=== PATIENT | female | born 1995 | race Caucasian/White ===

== ENCOUNTER 2017-10-22 20:05 | Emergency (ER) | payer BC ==
[~2017-10-22] VITALS: Ht 157.5 cm; Wt 56.7 kg
[2017-10-22 20:18] VITALS: BP_SYST 132
[2017-10-22 20:38] LABS: BILIRUBIN,URINE NEGATIVE (NEGATIVE); CLARITY/URINE CLEAR (CLEAR); COLOR,URINE YELLOW (YELLOW); GLUCOSE,URINE NEGATIVE (NEGATIVE); KETONES,URINE NEGATIVE (NEGATIVE); LEUKOCYTE ESTERASE ,URINE NEGATIVE (NEGATIVE); NITRITE, URINE NEGATIVE (NEGATIVE); PH,URINE 6.5 (5.0-8.0); PROTEIN URINE NEGATIVE (NEGATIVE); UROBILINOGEN,URINE 0.2 (0.2-1.0)
[2017-10-22 20:43] LABS: BLOOD, URINE TRACE (NEGATIVE)
[2017-10-22 21:00] LABS: BACTERIA,URINE FEW /HPF (None Seen); RBC,URINE 0-3 /HPF (0-3); WBC,URINE 0-3 /HPF (0-3)
[2017-10-22 21:01] LABS: BASOPHILS # (AUTO) 0.1 K/uL (0.0-0.2); BASOPHILS % (AUTO) 0.5 % (0.0-2.0); EOSINOPHILS # (AUTO) 0.5 K/uL (0.0-0.4); EOSINOPHILS % (AUTO) 4.6 % (0.0-4.0); HEMATOCRIT 40.7 % (36-48); HEMOGLOBIN 13.7 g/dL (12.0-16.0); LYMPHOCYTES # (AUTO) 3.5 K/uL (1.0-5.5); LYMPHOCYTES % (AUTO) 34.4 % (20.5-51.5); MEAN CORPUSCULAR HEMOGLOBIN 31 pg (27-31); MEAN CORPUSCULAR HGB CONC 34 % (32-36); MEAN CORPUSCULAR VOLUME 90 fL (79.0-98.0); MONOCYTES # (AUTO) 0.8 K/uL (0.0-1.0); MONOCYTES % (AUTO) 8.1 % (1.7-9.3); NEUTROPHILS # (AUTO) 5.3 K/uL (1.8-7.7); NEUTROPHILS % (AUTO) 52.4 % (40.0-70.0); PLATELET COUNT (AUTO) 438 K/uL (130-430); RED BLOOD CELL COUNT(AUTO) 4.51 MIL/uL (4.2-6.2); RED CELL DISTRIBUTION WIDTH 12.2 % (9.0-15.0); WHITE BLOOD COUNT (AUTO) 10.2 K/uL (4.8-10.8)
[2017-10-22 21:02] LABS: CALCIUM 9.7 mg/dL (8.4-11.0); CREATININE 0.83 mg/dL (0.55-1.30); POTASSIUM 3.6 mmol/L (3.5-5.1)
[2017-10-22 21:08] LABS: ALBUMIN 3.7 g/dL (3.4-4.8); TOTAL BILIRUBIN 0.7 mg/dL (0.0-1.0)
[2017-10-22] MEDS ORDERED: LORazepam 1 MG TABLET PO ONE (21:15)
[2017-10-22 22:52] VITALS: BP_SYST 111
== END 2017-10-22 22:52 | disposition home or self-care (01) ==
LOC: SED 20:05
DX: R42 Dizziness and giddiness (principal); Z86.2 Personal history of diseases of the blood and blood-forming organs and certain disorders involving the immune mechanism
CPT/HCPCS: 36415; 80053; 81000-TC; 81025; 83690-TC; 85025; 93005; 99285

== ENCOUNTER 2022-09-11 14:51 | Emergency (ER) | payer BC, OTHER ==
[~2022-09-11] VITALS: Ht 157.5 cm; Wt 59.9 kg
[2022-09-11 15:09] VITALS: BP_SYST 135
--- NOTE | 2022-09-11 15:10 | NUR ---
Patient triaged and placed in waiting room. VSS and patient appears in no acute distress at this time. Accompanied by SELF, awaiting available bed, and MD notified of need for MSE.
--- NOTE | 2022-09-11 16:00 | NUR ---
ER DR. RAMOS EXAMINING PT IN TRIAGE
[2022-09-11] MEDS ORDERED: MED4 PO (16:25)
[2022-09-11] MEDS ORDERED: NAPR-690 PO (16:25)
[2022-09-11 16:30] VITALS: BP_SYST 122
--- NOTE | 2022-09-11 16:30 | NUR ---
Patient given written and verbal discharge instructions and verbalizes understanding. ER MD discussed with patient the results and treatment provided. Patient in stable condition. ID arm band removed. Rx of MEDROL AND NAPROXEN given. Patient educated on pain management and to follow up with PMD. Pain Scale 0/10. Opportunity for questions provided and answered. Medication side effect fact sheet provided.
== END 2022-09-11 16:30 | disposition home or self-care (01) ==
LOC: SED 14:51
DX: J02.8 Acute pharyngitis due to other specified organisms (principal); Z79.899 Other long term (current) drug therapy
CPT/HCPCS: 99283